=== PATIENT | male | born 1990 | race Caucasian/White ===

== ENCOUNTER → 2023-02-04 10:00 | Outpatient (BNVA) | payer OTHER, SELFPAY | PROVIDERS: Family Provider Family Medicine; PCP Family Medicine; Visit Provider Family Medicine | DX: Z20.2 Contact with and (suspected) exposure to infections with a predominantly sexual mode of transmission (principal); Z72.51 High risk heterosexual behavior; J45.40 Moderate persistent asthma, uncomplicated; Z70.8 Other sex counseling; Z71.6 Tobacco abuse counseling; F17.200 Nicotine dependence, unspecified, uncomplicated; E66.9 Obesity, unspecified; K64.8 Other hemorrhoids | CPT/HCPCS: 80053; 80061; 84439; 84443; 85025; 87491; 87591; 87661; 87806 ==

== ENCOUNTER 2023-03-11 09:30 | Emergency (ER) | payer SELFPAY ==
[2023-03-11 09:47] VITALS: BP 115/75; PULSE 74; RESP 18; TEMP 37.2; O2SAT 97; BMI 36.7
--- NOTE | 2023-03-11 10:19 | ED_ITS ---
HPI - Allergic Reaction 2 General: Chief complaint: Allergic Reaction Stated complaint: possible allergic reaction, eye infection Time Seen by Provider: 03/11/23 10:01 Source: patient Mode of arrival: ambulatory History of Present Illness: HPI narrative: 32-year-old male presents emergency room complaining of swelling in the eyes. A week ago he was seen for redness to his right eye no swelling. He was seen in urgent care clinic is given antibiotics and a topical treatment for his time. Today he has redness bilaterally and a little bit of a sore throat. No difficulty speaking or swallowing no difficulty with breathing. Associated symptoms: Deny abdominal pain Review of Systems 2 Const: Denies: fever(s) or chills Card: Denies: chest pain Resp: Denies: dyspnea GI: Denies: abdominal pain : Denies: dysuria, urinary frequency or urinary urgency Musc: Denies: neck pain or back pain Skin/Breast: Denies: rash PFSH ED 2 PFSH: Medical History Moderate tobacco use disorder Sexually transmitted disease exposure Asthma Thrombosed hemorrhoids History of blood clots Surgical History History of ankle surgery History of right knee surgery Family History Grandmother Cancer Maternal-leukemia Other Lung disease Denies family history of Liver disease Diabetes CAD (coronary artery disease) Aneurysm Clotting disorder Dementia Hyperlipidemia Hyperthyroidism Hypothyroidism Psychiatric illness Chronic kidney disease (CKD) Anesthesia complication Bleeding disorder Hypertension Stroke Social History Smoking and tobacco/nicotine status: current every day tobacco/nicotine user cigarettes Packs smoked per day: 1 Alcohol intake: never Substance/Drug Use: never Lives independently: Yes Marital status: Single Number of children: 6 Current occupational status: unemployed Special graeme needs: No Agree to transfusion: Yes Physical Exam 2 Const: COMMON NORMALS: no acute distress GENERAL APPEARANCE: cooperative and comfortable ORIENTATION/CONSCIOUSNESS: Yes awake, Yes oriented to person, Yes oriented to place and Yes oriented to time HENMT: COMMON NORMALS: normocephalic, atraumatic and hearing grossly normal bilaterally HEAD & SCALP: normocephalic and atraumatic Resp: COMMON NORMALS: normal respiratory effort, No retractions, No use of accessory muscles and clear to auscultation bilaterally AUSCULTATION: clear to auscultation bilaterally Cardio: COMMON NORMALS: regular rate, regular rhythm and No murmurs present (Cardio) RATE: regular rate RHYTHM: regular rhythm GI: COMMON NORMALS: Soft to palpation and No hepatosplenomegaly present A USCULTATION: Yes normoactive bowel sounds PALPATION: Yes Soft to palpation, No Tenderness to palpation present (GI), No Guarding due to palpation present (GI) and Yes No hepatosplenomegaly present Extremity: COMMON NORMALS: normal to inspection, capillary refill normal, no clubbing, cyanosis or edema, no calf tenderness and no pedal edema Neuro: SENSORIUM/ORIENTATION: Yes oriented to person, Yes oriented to place and Yes oriented to time Skin: COMMON NORMALS: no rashes or lesions noted GENERAL SKIN EXAM: no rashes or lesions noted Course 2 Vital Signs: Vital signs: Vital Signs Temperature 99.0 F 03/11/23 09:47 Pulse Rate 68 03/11/23 10:46 Respiratory Rate 18 03/11/23 10:46 Blood Pressure 124/77 03/11/23 10:46 Pulse Oximetry 98 03/11/23 10:46 Oxygen Delivery Me thod Room Air 03/11/23 10:46 MDM - Allergic Reaction Medical Decision Making CT shows bilateral preseptal cellulitis. He could benefit from simplifying his regimen. Will change him to Bactrim alone hold the cefdinir stop erythromycin ointment and change to tobramycin drops follow-up with ophthalmology tomorrow I believe his symptoms are related to sequela of the infection itself not a true allergic reaction. Medical Records I reviewed the patient's medical records. Lab Data I reviewed the patient's lab results. 03/11/23 10:40 03/11/23 10:40 Laboratory Results WBC 7.34 10^3/uL (3.29-11.43) 03/11/23 10:40 RBC 4.68 10^6/uL (3.85-5.65) 03/11/23 10:40 Hgb 14.50 g/dL (11.27-16.99) 03/11/23 10:40 Hct 42.8 % (37-53) 03/11/23 10:40 MCV 91.5 fl (82-101) 03/11/23 10:40 MCH 31.0 pg (27-33) 03/11/23 10:40 MCHC 33.9 g/dL (30-55) 03/11/23 10:40 RDW 12.2 % (12.1-15.1) 03/11/23 10:40 Plt Count 241 10^3/cmm (157-399) 03/11/23 10:40 MPV 10.3 fL (7.4-10.4) 03/11/23 10:40 Neut % (Auto) 58.5 % 03/11/23 10:40 Lymph % (Auto) 22.6 % 03/11/23 10:40 [place] % (Auto) 15.5 % 03/11/23 10:40 Eos % (Auto) 2.5 % 03/11/23 10:40 Baso % (Auto) 0.5 % 03/11/23 10:40 Neut # (Auto) 4.29 10^3/uL (1.8-7.7) 03/11/23 10:40 Lymph # (Auto) 1.7 10^3/uL (0.8-4.8) 03/11/23 10:40 [place] # (Auto) 1.1 10^3/uL (0.2-0.9) H 03/11/23 10:40 Eos # (Auto) 0.2 10^3/uL (0.0-0.8) 03/11/23 10:40 Baso # (Auto) 0.0 10^3/uL (0.0-0.1) 03/11/23 10:40 Nucleated RBC % (auto) 0 % 03/11/23 10:40 Nucleated RBCs # 0.0 /100WBC 03/11/23 10:40 Sodium 132 mmol/L (136-145) L 03/11/23 10:40 Potassium 4.4 mmol/L (3.5-5.1) 03/11/23 10:40 Chloride 98 mmol/L (98-107) 03/11/23 10:40 Carbon Dioxide 22 mmol/L (22-29) 03/11/23 10:40 Anion Gap 16.4 (5-19) 03/11/23 10:40 BUN 12 mg/dL (6-20) 03/11/23 10:40 Creatinine 1.2 mg/dL (0.7-1.2) 03/11/23 10:40 GFR Calculation 71.1 mL/min (90-130) L 03/11/23 10:40 Glucose 92 mg/dL (65-115) 03/11/23 10:40 Calculated Osmolality 273 mOsm/kg (285-295) L 03/11/23 10:40 Calcium 9.6 mg/dL (8.5-10.5) 03/11/23 10:40 Total Bilirubin 0.4 mg/dL (0.15-1.2) 03/11/23 10:40 AST 40 U/L (0-40) 03/11/23 10:40 ALT 79 U/L (0-41) H 03/11/23 10:40 Alkaline Phosphatase 85 U/L (40-130) 03/11/23 10:40 Total Protein 7.8 g/dL (6.6-8.7) 03/11/23 10:40 Albumin 4.4 g/dL (3.5-5.2) 03/11/23 10:40 Globulin 3.4 g/dL (1.3-4.6) 03/11/23 10:40 Group A Strep Rapid Negative (Negative) 03/11/23 11:05 All radiology interpretation(s) finalized by discharge Discharge Plan Discharge Patient Disposition: Home Clinical Impression: Preseptal cellulitis Condition: Stable Prescriptions: New tobramycin 0.3 % drops 2 drp ophthalmic (eye) Q4H Qty: 5 0RF Discontinued erythromycin 5 mg/gram (0.5 %) ointment 0.5 inch ophthalmic (eye) QID 7 Days Qty: 3.5 0RF cefdinir 300 mg capsule 300 mg PO BID 7 Days Qty: 14 0RF No Action budesonide-formoterol [Symbicort] 80-4.5 mcg/actuation HFA aerosol inhaler 2 puff inhalation BID Qty: 10.2 3RF sulfamethoxazole-trimethoprim [Bactrim DS] 800-160 mg tablet 1 tab PO BID 7 Days Qty: 14 0RF Ventolin HFA 90 mcg/actuation Hfa Aerosol Inhaler 1 inh INHALATION QID PRN (Reason: Shortness Of Breath) Discharge Orders: Discharge ED (Routine); Ordered 03/11/23 Ordered By: Matt Molina Referrals: Matt Maldonado [Physician] - Discharge Diet: Usual diet Discharge Activity: Increase activity as tolerated Patient Instructions: Cellulitis (ED), Opioid Safety, Pain Management Activity Restrictions/Additional Instructions: Thank you for choosing [facility] for your healthcare needs today. Please realize this is an emergency room and that we are providing you with a medical screening exam and this may not be complete and all inclusive of all the testing and or work up that you may need to determine your ailment or severity of your illness. It is very important that you follow up as instructed or that you return to the Emergency Department should you have concerns or if your condition changes or worsens in any way. You are seen today for redness around the eyes. CT shows that you have a preseptal cellulitis. Recommend that you follow-up with ophthalmology tomorrow. Coding Level of Care Code ED Sculpture Conservator for Remigio Quan
--- NOTE | 2023-03-11 10:24 | CT_ITS ---
WS: [id number] CT ORBITS TECHNIQUE: Contrast-enhanced CT of the orbits with coronal and sagittal reformatted images. CLINICAL INFORMATION: orbital cellulitis COMPARISON: None. DLP: 323.[address] scans at [facility] use at least one of these dose optimization techniques: automated e xposure control; mA and/or kV adjustment per patient size (includes targeted exams where dose is matc hed to clinical indication); or iterative reconstruction. FINDINGS: Mild mucosal thickening in the paranasal sinuses. Mild soft tissue edema overlying both orbits compat ible with preseptal cellulitis. No evidence of postseptal extension. Normal intraconal fat and rectus muscles. No evidence of drainable abscess or fluid collection. Mastoid air cells are well aerated. Normal posterior nasopharynx. Partially visualized intracranial c ontents appear normal. IMPRESSION: 1. Bilateral preseptal cellulitis. No evidence of postseptal extension. 2. No drainable abscess or fluid collection. 3. Mild mucosal thickening in the paranasal sinuses.
[2023-03-11] MEDS: diphenhydrAMINE 50 mg/mL SDV 1mL IVP (10:43)
[2023-03-11] MEDS: famotidine 20 mg/2 mL INJ 40 MG IVP (10:43)
[2023-03-11 10:46] VITALS: BP 124/77; PULSE 68; RESP 18; O2SAT 98
[2023-03-11 10:52] LABS: Basophils % 0.5 %; Eosinophils # 0.2 10^3/uL (0.0-0.8); Eosinophils % 2.5 %; Hematocrit 42.8 % (37-53); Lymphocytes # 1.7 10^3/uL (0.8-4.8); Lymphocytes % 22.6 %; Mean Corpuscular HGB Conc 33.9 g/dL (30-55); Mean Corpuscular Volume 91.5 fl (82-101); Mean Platelet Volume 10.3 fL (7.4-10.4); Monocytes # 1.1 10^3/uL (0.2-0.9); Monocytes % 15.5 %; Neutrophils # 4.29 10^3/uL (1.8-7.7); Neutrophils % 58.5 %; Nucleated Red Blood Cells % 0 %; Platelet Count 241 10^3/cmm (157-399); Red Blood Count 4.68 10^6/uL (3.85-5.65); Red Cell Distribution Width 12.2 % (12.1-15.1); White Blood Count 7.34 10^3/uL (3.29-11.43)
[2023-03-11] MEDS: iohexol 350 mg/mL 500 mL Btl (per mL) IV (10:52)
[2023-03-11 11:10] LABS: Alanine Aminotransferase 79 U/L (0-41); Albumin Level 4.4 g/dL (3.5-5.2); Alkaline Phosphatase 85 U/L (40-130); Anion Gap 16.4 (5-19); Aspartate Amino Transferase 40 U/L (0-40); Blood Urea Nitrogen 12 mg/dL (6-20); Calcium 9.6 mg/dL (8.5-10.5); Carbon Dioxide 22 mmol/L (22-29); Chloride 98 mmol/L (98-107); Globulin 3.4 g/dL (1.3-4.6); Glomerular Filtration Rate 71.1 mL/min (90-130); Glucose 92 mg/dL (65-115); Osmolality Calculated 273 mOsm/kg (285-295); Potassium 4.4 mmol/L (3.5-5.1); Sodium 132 mmol/L (136-145); Total Bilirubin 0.4 mg/dL (0.15-1.2); Total Protein 7.8 g/dL (6.6-8.7)
[2023-03-11 12:33] LABS: Rapid Strep A Test Negative (Negative)
== END 2023-03-11 12:53 | disposition home or self-care (01) ==
PROVIDERS: Emergency Provider Family Medicine; PCP Family Medicine
DX: L03.213 Periorbital cellulitis (principal); F17.210 Nicotine dependence, cigarettes, uncomplicated
CPT/HCPCS: 70481; 80053; 85025; 87081; 87880; 96374; 96375; 99285; J1200; J3490; Q9967

== ENCOUNTER 2024-09-01 16:59 | Emergency (ER) | payer SELFPAY ==
[2024-09-01 17:19] VITALS: BP 108/64; PULSE 80; TEMP 36.7; O2SAT 98; BMI 39.0
--- NOTE | 2024-09-01 18:04 | ED_ITS ---
HPI - Nausea/Vomiting/Diarrhea 2 General: Chief complaint: Nausea/Vomiting/Diarrhea Stated complaint: n/v/d/f Time Seen by Provider: 09/01/24 17:41 History of Present Illness: 34-year-old male who presents emergency room with nausea vomiting and diarrhea. He has been having some diffuse crampy abdominal pain and some pain in his ribs from vomiting. This been going on for a few days. No urinary complaints. No fevers. No chest pain. Related Data Home Medications ?Medication ?Instructions ?Recorded ?Confirmed albuterol sulfate 90 mcg/actuation 1 inh inhalation QI D PRN Shortness 03/11/23 03/11/23 aerosol inhaler (Ventolin HFA) Of Breath Previous Rx's ?Medication ?Instructions ?Recorded budesonide-formoterol HFA 80 2 puff inhalation BID #10 .2 grams 02/04/23 mcg-4.5 mcg/actuation aerosol inhaler (Symbicort) sulfamethoxazole 800 1 tab PO BID 7 days #14 tabs 03/09/23 mg-trimethoprim 160 mg tablet (Bactrim DS) tobramycin 0.3 % eye drops 2 drp ophthalmic (eye) Q4H #5 mL 03/11/23 ondansetron 4 mg disintegrating 4 mg PO Q8H PRN nausea and 09/01/24 tablet vomiting #10 tabs promethazine 25 mg rectal 25 mg TN Q6H PRN nausea and 09/01/24 suppository vomiting #12 ea Allergies Allergy/AdvReac Type Severity Reaction Status Date / Time Penicillins Allergy Severe ALGY-Anaphy Verified 09/01/24 17:22 laxis Review of Systems 2 Narrative: Constitutional symptoms: Negative except as documented in HPI. Skin symptoms: Negative except as documented in HPI. Eye symptoms: Negative except as documented in HPI. ENMT symptoms: Negative except as documented in HPI. Respiratory symptoms: Negative except as documented in HPI. Cardiovascular symptoms: Negative except as documented in HPI. Gastrointestinal symptoms: Negative except as documented in HPI. Genitourinary symptoms: Negative except as documented in HPI. Musculoskeletal symptoms: Negative except as documented in HPI. Neurologic symptoms: Negative except as documented in HPI. Psychiatric symptoms: Negative except as documented in HPI. Endocrine symptoms: Negative except as documented in HPI. PFSH ED 2 PFSH: Medical History Moderate tobacco use disorder Sexually transmitted disease exposure Asthma Thrombosed hemorrhoids History of blood clots Surgical History History of ankle surgery History of right knee surgery Family History Grandmother Cancer Maternal-leukemia Other Lung disease Denies family history of Liver disease Diabetes CAD (coronary artery disease) Aneurysm Clotting disorder Dementia Hyperlipidemia Hyperthyroidism Hypothyroidism Psychiatric illness Chronic kidney disease (CKD) Anesthesia complication Bleeding disorder Hypertension Stroke Social History Smoking and tobacco/nicotine status: current every day tobacco/nicotine user cigarettes Packs smoked per day: 1 Alcohol intake: never Substance/Drug Use: never Lives independently: Yes Marital status: Single Number of children: 6 Current occupational status: unemployed Special graeme needs: No Agree to transfusion: Yes Physical Exam 2 Narrative: EXAM NARRATIVE: General: Alert, no acute distress. Skin: Warm, dry. Head: Normocephalic, atraumatic. Neck: Supple, trachea midline. Eye: Extraocular movements are intact. Ears, nose, mouth and throat: Tacky oral mucosa Cardiovascular: Regular, Normal peripheral perfusion. Respiratory: Lungs are clear to auscultation, respirations are non-labored, breath sounds are equal, Symmetrical chest wall expansion. Gastrointestinal: Soft, Nontender, Non distended Musculoskeletal: Normal ROM, no deformity. Neurological: Alert and oriented, No focal neurological deficit observed. Psychiatric: Cooperative, appropriate mood & affect. Course 2 Vital Signs: Vital signs: Vital Signs Temperature 98.0 F 09/01/24 17:19 Pulse Rate 80 09/01/24 17:19 Blood Pressure 108/64 09/01/24 17:19 Pulse Oximetry 98 09/01/24 17:19 Oxygen Delivery Me thod Room Air 09/01/24 17:19 MDM - Nausea/Vomiting/Diarrhea Medical Decision Making Medical decision making: Differential diagnosis for this patient with nausea and vomiting including but not limited to and based on the above HPI, review of systems and physical exam: Urinary tract infection. Appendicitis. Cholecystitis. Colitis. small bowel obstruction. crohn's flare. pancreatitis. gastritis. peptic ulcer. cyclic vomiting. Viral illness. Influenza. COVID. Orders placed to evaluate differential diagnosis based on the above differential, HPI and physical exam Lab Review: Laboratory results were reviewed and interpreted by myself the emergency room physician. Lab work is unremarkable. No leukocytosis. No anemia. No renal failure. No hyponatremia. Urinalysis is negative for infection. I reviewed the patient's medical record. Reexamination: Patient remained stable. No increased work of breathing. No altered mental status. No focal motor deficits. Patient is now tolerating fluids. Says he feels quite a bit better. No focal abdominal pain. Advised to return to the emergency room if he worsens. Assessment and plan: Gastroenteritis ? IV Zofran and fluids. Tolerating p.o. fluids. - Discharged home - Discussed plan with patient. Answered any questions. - Evaluation and treatment of this problem were appropriate in the emergency setting. Lab Data 09/01/24 18:27 Laboratory Results WBC 6.05 10^3/uL (3.29-11.43) 09/01/24 18:15 RBC 4.67 10^6/uL (3.85-5.65) 09/01/24 18:15 Hgb 14.50 g/dL (11.27-16.99) 09/01/24 18:15 Hct 40.6 % (37-53) 09/01/24 18:15 MCV 86.9 fl (82-101) 09/01/24 18:15 MCH 31.0 pg (27-33) 09/01/24 18:15 MCHC 35.7 g/dL (30-55) 09/01/24 18:15 RDW 14.3 % (12.1-15.1) 09/01/24 18:15 Plt Count 226 10^3/cmm (157-399) 09/01/24 18:15 MPV 11.4 fL (7.4-10.4) H 09/01/24 18:15 Neut % (Auto) 53.7 % 09/01/24 18:15 Lymph % (Auto) 30.1 % 09/01/24 18:15 [place] % (Auto) 12.4 % 09/01/24 18:15 Eos % (Auto) 3.0 % 09/01/24 18:15 Baso % (Auto) 0.5 % 09/01/24 18:15 Neut # (Auto) 3.25 10^3/uL (1.8-7.7) 09/01/24 18:15 Lymph # (Auto) 1.8 10^3/uL (0.8-4.8) 09/01/24 18:15 [place] # (Auto) 0.8 10^3/uL (0.2-0.9) 09/01/24 18:15 Eos # (Auto) 0.2 10^3/uL (0.0-0.8) 09/01/24 18:15 Baso # (Auto) 0.0 10^3/uL (0.0-0.1) 09/01/24 18:15 Nucleated RBC % (auto) 0 % 09/01/24 18:15 Nucleated RBCs # 0.0 /100WBC 09/01/24 18:15 Sodium 137 mmol/L (136-145) 09/01/24 18:27 Potassium 3.9 mmol/L (3.5-5.1) 09/01/24 18:27 Chloride 103 mmol/L (98-107) 09/01/24 18:27 Carbon Dioxide 23 mmol/L (22-29) 09/01/24 18:27 Anion Gap 14.9 (5-19) 09/01/24 18:27 BUN 10 mg/dL (6-20) 09/01/24 18:27 Creatinine 0.8 mg/dL (0.7-1.2) 09/01/24 18:27 GFR Calculation 112.0 mL/min (90-130) 09/01/24 18:27 Glucose 93 mg/dL (65-115) 09/01/24 18:27 Calculated Osmolality 283 mOsm/kg (285-295) L 09/01/24 18:27 Lactic Acid 0.6 mmol/L (0.5-2.2) 09/01/24 18:27 Calcium 8.9 mg/dL (8.5-10.5) 09/01/24 18:27 Total Bilirubin 0.2 mg/dL (0.15-1.2) 09/01/24 18:27 AST 25 U/L (0-40) 09/01/24 18:27 ALT 31 U/L (0-41) 09/01/24 18:27 Alkaline Phosphatase 63 U/L (40-130) 09/01/24 18:27 C-Reactive Protein 66.6 mg/L (0.0-4.9) H 09/01/24 18:27 Total Protein 7.0 g/dL (6.6-8.7) 09/01/24 18:27 Albumin 4.1 g/dL (3.5-5.2) 09/01/24 18:27 Globulin 2.9 g/dL (1.3-4.6) 09/01/24 18:27 Lipase 27 U/L (13-60) 09/01/24 18:27 Urine Color Yellow (Yellow) 09/01/24 17:55 Urine Appearance Clear (CLEAR) 09/01/24 17:55 Urine pH 6.0 (5-7) 09/01/24 17:55 Ur Specific Normal 1.026 (1.005-1.030) 09/01/24 17:55 Urine Protein Trace (Negative) A 09/01/24 17:55 Urine Glucose (UA) Negative (Normal) 09/01/24 17:55 Urine Ketones Trace (Negative) 09/01/24 17:55 Urine Blood Negative (Negative) 09/01/24 17:55 Urine Nitrate Negative (Negative) 09/01/24 17:55 Urine Bilirubin Negative (Negative) 09/01/24 17:55 Urine Urobilinogen 1.0 mg/dL (Negative) 09/01/24 17:55 Ur Leukocyte Esterase Negative (Negative) 09/01/24 17:55 Urine RBC 0-2 /hpf (0-2) 09/01/24 17:55 Urine WBC 0-5 /hpf (0-5) 09/01/24 17:55 Ur Squamous Epith Cells 0-5 /hpf (0-5) 09/01/24 17:55 Amorphous Sediment Not Reportable 09/01/24 17:55 Urine Bacteria None seen /hpf (NONE) 09/01/24 17:55 Hyaline Casts 0.40 /lpf 09/01/24 17:55 Urine Opiates Screen Negative ng/mL (Negative) 09/01/24 17:55 Ur Barbiturates Screen Negative ng/mL (Negative) 09/01/24 17:55 Ur Phencyclidine Scrn Negative ng/mL (Negative) 09/01/24 17:55 Ur Amphetamines Screen Negative ng/mL (Negative) 09/01/24 17:55 U Benzodiazepines Scrn Negative ng/mL (Negative) 09/01/24 17:55 Urine Cocaine Screen Negative ng/mL (Negative) 09/01/24 17:55 U Marijuana (THC) Screen Positive ng/mL (Negative) H 09/01/24 17:55 No radiology studies performed this visit Discharge Plan Discharge Patient Disposition: Home Clinical Impression: Gastroenteritis Condition: Stable Prescriptions: New promethazine 25 mg suppository 25 mg TN Q6H PRN (Reason: nausea and vomiting) Qty: 12 0RF ondansetron 4 mg tablet,disintegrating 4 mg PO Q8H PRN (Reason: nausea and vomiting) Qty: 10 0RF No Action budesonide-formoterol [Symbicort] 80-4.5 mcg/actuation HFA aerosol inhaler 2 puff inhalation BID Qty: 10.2 3RF sulfamethoxazole-trimethoprim [Bactrim DS] 800-160 mg tablet 1 tab PO BID 7 Days Qty: 14 0RF Ventolin HFA 90 mcg/actuation Hfa Aerosol Inhaler 1 inh INHALATION QID PRN (Reason: Shortness Of Breath) tobramycin 0.3 % drops 2 drp ophthalmic (eye) Q4H Qty: 5 0RF Discharge Orders: Discharge ED (Routine); Ordered 09/01/24 Ordered By: Rachel Everett Referrals: Tr Askew MD [Primary Care Provider, Family Practice] Discharge Diet: Advance as tolerated Discharge Activity: Increase activity as tolerated Patient Instructions: Gastroenteritis (ED), Acute Nausea and Vomiting (ED), Opioid Safety, Pain Management Activity Restrictions/Additional Instructions: Thank you for choosing [facility] for your healthcare needs today. You have been screened and evaluated and felt safe for discharge. Health conditions do change or evolve sometimes and as such it is important that you follow up with your Primary Doctor to be re checked, 3-5 days is a general good time frame for follow up. You are always welcome to return to the ED for re assessment if your symptoms are worsening or you have new concerns Print Language: Lebanese Coding Level of Care Code ED Environmental Change Analyst for Remigio Quan
[2024-09-01 18:10] LABS: Bilirubin Urine Negative (Negative); Blood Urine Negative (Negative); Glucose Urine UA Negative (Normal); Ketones Urine Trace (Negative); Leukocyte Esterase Urine Negative (Negative); Nitrate Urine Negative (Negative); Protein Urine Trace (Negative); Specific Gravity, Urine 1.026 (1.005-1.030); Urine Appearance Clear (CLEAR); Urine Color Yellow (Yellow)
[2024-09-01 18:13] LABS: Bacteria Urine None Seen /hpf; RBC Urine 0-2 /hpf (0-2); Squamous Epithelial Cell Urine 0-5 /hpf (0-5); WBC Urine 0-5 /hpf (0-5)
[2024-09-01] MEDS: sodium chloride 0.9% 1,000 ML 999 ML IV (18:15)
[2024-09-01] MEDS: ondansetron 2 mg/ML SDV 2 mL 8 MG IVP (18:16)
[2024-09-01 18:17] LABS: Amphetamines Screen Urine Negative (Negative); Barbiturates Screen Urine Negative (Negative); Benzodiazepines Screen Urine Negative (Negative); Cocaine Screen Urine Negative (Negative); Opiate Screen Urine Negative (Negative); PCP Screen Urine Negative (Negative); THC Screen Urine Positive (Negative)
[2024-09-01] MEDS: ketorolac 30 mg/mL INJ IVP (18:17)
[2024-09-01 18:29] LABS: Basophils % 0.5 %; Eosinophils # 0.2 10^3/uL (0.0-0.8); Hematocrit 40.6 % (37-53); Lymphocytes # 1.8 10^3/uL (0.8-4.8); Lymphocytes % 30.1 %; Mean Corpuscular HGB Conc 35.7 g/dL (30-55); Mean Corpuscular Volume 86.9 fl (82-101); Mean Platelet Volume 11.4 fL (7.4-10.4); Monocytes # 0.8 10^3/uL (0.2-0.9); Monocytes % 12.4 %; Neutrophils # 3.25 10^3/uL (1.8-7.7); Neutrophils % 53.7 %; Nucleated Red Blood Cells % 0 %; Platelet Count 226 10^3/cmm (157-399); Red Blood Count 4.67 10^6/uL (3.85-5.65); Red Cell Distribution Width 14.3 % (12.1-15.1); White Blood Count 6.05 10^3/uL (3.29-11.43)
[2024-09-01 18:57] LABS: Alanine Aminotransferase 31 U/L (0-41); Albumin Level 4.1 g/dL (3.5-5.2); Alkaline Phosphatase 63 U/L (40-130); Anion Gap 14.9 (5-19); Aspartate Amino Transferase 25 U/L (0-40); Blood Urea Nitrogen 10 mg/dL (6-20); C Reactive Protein 66.6 mg/L (0.0-4.9); Calcium 8.9 mg/dL (8.5-10.5); Carbon Dioxide 23 mmol/L (22-29); Chloride 103 mmol/L (98-107); Creatinine Clr Calc Pharmacy 174.6578; Globulin 2.9 g/dL (1.3-4.6); Glucose 93 mg/dL (65-115); Lipase 27 U/L (13-60); Osmolality Calculated 283 mOsm/kg (285-295); Potassium 3.9 mmol/L (3.5-5.1); Sodium 137 mmol/L (136-145); Total Bilirubin 0.2 mg/dL (0.15-1.2)
[2024-09-01 18:58] LABS: Lactic Sepsis W/Reflex 0.6 mmol/L (0.5-2.2)
--- NOTE | 2024-09-01 19:25 | PC.NURSE ---
this nurse assumed pt care from Serene NORIEGA at 1900.
== END 2024-09-01 20:07 | disposition home or self-care (01) ==
PROVIDERS: Emergency Provider Emergency Medicine; PCP Family Medicine
DX: K52.9 Noninfective gastroenteritis and colitis, unspecified (principal); F17.210 Nicotine dependence, cigarettes, uncomplicated
CPT/HCPCS: 36415; 80053; 80306; 81001; 83605; 83690; 85025; 86140; 96374; 96375; 99284; J1885; J2405; J7030